=== PATIENT | male | born 1975 | race Caucasian/White ===

== ENCOUNTER → 2020-03-21 | Outpatient (CLI) | payer BC, OTHER ==
[~2020-03-21] MED LIST: PENI500T PO
== END ==
LOC: M LABSMTC 12:21
PROVIDERS: ATTEND Anesthesiology
DX: Z01.818 Encounter for other preprocedural examination (principal); Z11.59 Encounter for screening for other viral diseases
CPT/HCPCS: C9803; U0002

== ENCOUNTER 2020-03-22 08:20 | Day surgery (SDC) | payer BC, OTHER ==
[~2020-03-22] VITALS: Ht 185.4 cm; Wt 147.4 kg
[~2020-03-22 08:20] MED LIST changes: +LIDOCAINE 1% MDV 20ML VIAL SQ PRN; +LIDOCAINE 2% 100MG/5ML SDV (FOR ANES.) As Ordered ONE; +LR 1,000 ML IV ONE; +ONDANSETRON 4MG/2ML VIAL As Ordered ONE; +dexameTHASONE 4 MG/ML 1ML VIAL (J1100 PER 1MG) As Ordered ONE; +fentaNYL 100 MCG/2 ML INJECTION (J3010) As Ordered ONE; +propofoL 200 MG/20 ML VIAL As Ordered ONE
[2020-03-22] MEDS ORDERED: MIDAZOLAM INJ 2MG/2ML VIAL (J2250 PER 1MG) As Ordered ONE (09:15)
[2020-03-22] MEDS ORDERED: CIPRODEX OTIC SUSP 7.5ML As Ordered ONE (09:35)
[2020-03-22] MEDS ORDERED: LR 1,000 ML IV SCH (10:15)
[2020-03-22] MEDS ORDERED: METOCLOPRAMIDE INJ 10MG/2ML VIAL (J2765 PER 1) IV PRN (10:15)
[2020-03-22] MEDS ORDERED: MEPERIDINE INJ 25 MG/ML VIAL (J2175) IV PRN (10:15)
[2020-03-22] MEDS ORDERED: fentaNYL 100 MCG/2 ML INJECTION (J3010) IV PRN (10:15)
[2020-03-22] MEDS ORDERED: ONDANSETRON 4MG/2ML VIAL IV PRN (10:15)
[2020-03-22] MEDS ORDERED: IBUPROFEN 800 MG TAB PO PRN (10:15)
[2020-03-22] MEDS ORDERED: PERCOCET 5MG/325MG TAB PO PRN (10:15)
[2020-03-22 10:25] VITALS: BP 133/84
--- NOTE | 2020-03-28 17:01 | RO ---
DATE OF PROCEDURE: 03/22/2020 PREPROCEDURE DIAGNOSIS: Chronic secretory otitis media. POSTPROCEDURE DIAGNOSIS: Chronic secretory otitis media. PROCEDURE: Bilateral myringotomy tubes. SURGEON: Mustapha Rios MD THREAD ROLLER: ANESTHESIA: INDICATIONS: This is a 45-year-old who has been followed for a year or more with persistent middle ear fluid as well as conductive hearing loss. Office myringotomy previously done. His hearing had improved after that in his right ear. DESCRIPTION OF PROCEDURE: Satisfactory mask anesthesia administered. Left ear examined and cleaned under the microscope. Some neovascularization of the anterior-inferior myringotomy. Serous fluid suctioned from the middle ear. Beveled bobbin tube inserted. Ciprodex drops instilled. Next, the right ear was examined and cleaned under the microscope. Exostosis ear canal did limit the exposure of the tympanic membrane, but a previously placed tube was noted. It, however, appeared to be occluded. It was grabbed with a forcep and removed. A small myringotomy still existed. A beveled bobbin tube was inserted easily through this myringotomy. Ciprodex drops instilled. He tolerated the procedure well and was sent to recovery in satisfactory condition. He will be seen back in the office in 1 week.
== END 2020-03-22 10:50 | disposition home or self-care (01) ==
LOC: M SDC 08:20
PROVIDERS: ATTEND Specialist
DX: H65.23 Chronic serous otitis media, bilateral (principal); I10 Essential (primary) hypertension; F17.218 Nicotine dependence, cigarettes, with other nicotine-induced disorders
CPT/HCPCS: 69436; J1100; J2250; J2405; J3010